=== PATIENT | female | born 1980 | race Caucasian/White ===

== ENCOUNTER → 2017-11-29 | Outpatient (REF) ==
[2015-09-14 12:22] VITALS: BMI 26.6
[~2017-11-29] MED LIST: ACE325 PO; ALLERGY INJECTIONS INJ; Benzocaine 60 ML TP; CHOL200021 PO; DOCO100C2 PO; DOCU240C67 PO; ETHI1TAB25 PO; FOLI0.4T56 PO; HYDR200T77 PO; IBUP800T37 PO; LOP2 PO; LOPE1TAB55 PO; Lanolin TP; NAPR-1043 PO; OMEG-11 PO; ONDA-153 SL; PER PO; PNV1TABL24 PO; PNV1TABL92 PO; SER50 PO; TUCKS TP; [UNRECOGNIZED DRUG - CODE] PO
--- NOTE | 2017-11-29 10:16 | RADIOLOGY IMAGING REPORT ---
FACILITY: [facility] [place] PATIENT NAME: Felisha Gatica : 1980 MR: [id number] V: [id number] EXAM DATE: ORDERING PHYSICIAN: TRACEY CUENCA TECHNOLOGIST: Location: [facility] Patient: Felisha Gatica : 1980 Visit/Account:[id number] Date of Sevice: 11/29/2017 Exam type: CHEST SINGLE AP History: Work care physical, no complaints Comparison: August 04, 2013. Findings: The lungs are free of acute effusions, infiltrates or edema. The cardiac silhouette is normal in size. There is a dense curvilinear structure projecting over the left hilum and left heart border. This ap pears more prominent when compared to the prior study. This could represent a vascular anomaly or ma rked vascular ectasia. Given the interval change, CT of the chest is recommended with contrast for f urther evaluation Visualized bones are unremarkable IMPRESSION: 1. No evidence of pulmonary consolidation There is a dense curvilinear structure projecting over the left hilum and left heart border which mendoza ears more prominent when compared the prior study. This could represent a vascular anomaly or marked vascular ectasia however given the interval change a CT of the chest with contrast is recommended fo r further evaluation Report Dictated By: Tomasa Raya MD at 11/29/2017 10:09 AM Report E-Signed By: Tomasa Raya MD at 11/29/2017 10:12 AM WSN:[id number]
== END ==
LOC: RAD 08:58
PROVIDERS: ATTEND Physician Assistant Medical
DX: Z02.9 Encounter for administrative examinations, unspecified (principal)
CPT/HCPCS: 71045

== ENCOUNTER → 2017-12-03 | Outpatient (CLI) | payer OTHER ==
[2015-09-14 12:22] VITALS: BMI 26.6
[~2017-12-03] MED LIST changes: +IOPAMIDOL 76% 75 ML INFUS BTL 75 ML ONE
--- NOTE | 2017-12-03 18:19 | RADIOLOGY IMAGING REPORT ---
FAC[place] [facility] [place]IENT NAME: Felisha Gatica : 1980 MR: [id number] V: [id number] EXAM DATE: ORDERING PHYSICIAN: TRACEY CUENCA TECHNOLOGIST: Location: [facility] Patient: Felisha Gatica : 1980 Visit/Account:[id number] Date of Sevice: 12/03/2017 CHEST W CONTRAST HISTORY: Abnormal chest x-ray TECHNIQUE: CT chest with intravenous contrast. Contiguous helical images was performed from the lung apices to below the diaphragm. One of the following dose optimization techniques was utilized in the performance of this exam: Autom ated exposure control; adjustment of the mA and/or kV according to the patient's size; or use of an i terative reconstruction technique. Specific details can be referenced in the facility's radiology C T exam operational policy. CONTRAST: 75 cc of Isovue-[id number] COMPARISON: Chest x-ray 10 cm 09/2017 FINDINGS: Heart/vessels: There is ectasia and aneurysmal dilation of the descending thoracic aorta with signif icant calcification out of proportion for patient's age. The ascending aorta and transverse arch are normal in caliber. The ectasia and aneurysm begins distal to takeoff of the subclavian artery and and and at the level the diaphragm. Index measurements provided below. Thoracic aorta: (Maximal dimensions) Sinotubular junction 3.1 cm Mid ascending thoracic aorta 3.1 cm Proximal aortic arch 2.7 cm Distal aortic arch just distal to the left subclavian 2.1 cm. Proximal descending thoracic aorta 3.4 cm Mid descending thoracic aorta 3.6 cm Distal descending thoracic aorta 3.7 x 3.5 cm Distal descending thoracic aorta just above the diaphragm 3.2 cm No evidence for dissection. Great vessels are widely patent. Mediastinum: Negative. Lymph nodes: Negative. Lungs/pleura: Negative. Visualized upper abdomen: Negative. Bones/soft tissues: Degenerative endplate changes are noted. IMPRESSION: 1. 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 Significant calcification of the wall of the descending thoracic aorta is noted without of proportion for patient's age. No evidence for dissection. Index measurements provided above. Report Dictated By: Gerry Manzano MD at 12/03/2017 6:06 PM Report E-Signed By: Gerry Manzano MD at 12/03/2017 6:16 PM WSN:[id number]
== END ==
LOC: CT 04:27
PROVIDERS: ATTEND Physician Assistant Medical
DX: I71.2 Thoracic aortic aneurysm, without rupture (principal)
CPT/HCPCS: 71260; Q9967